=== PATIENT | female | born 2005 | race Caucasian/White ===

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

== ENCOUNTER 2023-01-06 12:05 | Outpatient (CLI) | payer OTHER ==
[2023-01-06 13:20] VITALS: BP 137/79; PULSE 108; RESP 18; TEMP 97.8
--- NOTE | 2023-02-02 16:35 | P.MSEPDOC ---
Presenting Problems - Arrival Data Date of Arrival on Unit: 01/06/23 Time of Arrival on Unit: 12:05 Mode of Transport: Ambulatory - Complaint OB-Reason for Admission/Chief Complaint: Rule Out SROM Comment: Pt presents with possible ROM this morning at 0930. Pt woke up and while ambulating to bathroom felt a gush of fluid. Medical History - Information : 1 Para: 0 Term: 0 : 0 Abortions: Spontaneous or Elective: 0 Number of Living Children: 0 - Gestational Age Gestational Age by JUSTYNA (wks/days): 39 Weeks and 6 Days Review of Systems - Review of Systems Constitutional: No problems Breast: No problems ENT: No problems Cardiovascular: No problems Respiratory: No problems Gastrointestinal: No problems Genitourinary: No problems Musculoskeletal: No problems Neurological: No problems Skin: No problems Vital Signs - Temperature Temperature: 97.8 F Temperature Source: Temporal Artery Scan - Pulse Pulse Oximetery Pulse Rate: 108 Pulse Assessment Method: Pulse Oximetry - Respirations Respiratory Rate: 18 Oxygen Delivery Method: Room Air O2 Sat by Pulse Oximetry: 98 - Blood Pressure Right Arm Blood Pressure: 137/79 Blood Pressure Mean: 98 Blood Pressure Source: Automatic Cuff Medical Screen Scoring - Cervical Exam Dilation (cm): 1 Effacement (%): 50 Membranes: Intact - Assessment - Baby A Baseline FHR: 130 NST: Reactive Physician Notification - Physician Notified Physician Notified Date: 01/06/23 Physician Notified Time: 12:50 Physician: Meka Akhtar New Order Received: Yes - Notification Comment Comment: pt 39 and 6 presents with possible ROM. Pt not cx. per toco, amnisure negative, 1cm/thick and posterior. Orders recieved to d/c home once. NST reactive. Pt to keep appointment in the office tomorrow at 2p with Dr. Akhtar Maternal Triage Index - Maternal Triage Index Presenting for scheduled procedure w/no complaint: No - Stat/Priority 1 Stat Priority 1: No - Urgent/Priority 2 Urgent Priority 2: No - Prompt/Priority 3 Prompt Priority 3: Yes Criteria Met for Priority 3: Pt presents with possible ROM this morning at 0930. Pt woke up and while ambulating to bathroom felt a gush of fluid. Disposition - Disposition OB Disposition: Triage, Discharge to home Discharge Date: 01/06/23 Discharge Time: 12:54 I agree with the RN Medical Screening Exam: Yes Case reviewed; plan agreed upon as documented in EMR&OBIX.: Yes Diagnosis: RELATED CONDITIONS, UNSPECIFIED, THIRD TRIMESTER
== END 2023-01-06 12:54 | disposition home or self-care (01) ==
LOC: FBPOP 12:05
PROVIDERS: ATTEND Obstetrics & Gynecology Obstetrics
DX: O47.1 False labor at or after 37 completed weeks of gestation (principal); Z3A.39 39 weeks gestation of pregnancy
CPT/HCPCS: 59025; 84112; G0463; 99213

== ENCOUNTER 2023-10-25 23:14 | Emergency (ER) | payer OTHER ==
[2023-10-25 23:32] VITALS: BP 107/74; PULSE 109; RESP 22; TEMP 99.5
[2023-10-25] MEDS ORDERED: KETOROLAC 15 MG/ML 1 ML VIAL IM STA (23:47)
[2023-10-25] MEDS ORDERED: ACETAMINOPHEN TAB 500 MG TAB PO STA (23:47)
--- NOTE | 2023-10-25 23:48 | ED ---
General Adult HPI - General Source: patient, RN notes reviewed Mode of arrival: EMS Limitations: no limitations <Sharif Travis - Last Filed: 10/25/23 23:49> <Luis Campbell - Last Filed: 10/26/23 00:21> - General Chief complaint: Upper Respiratory Infection Stated complaint: Difficulty Breathing, COVID+ Time Seen by Provider: 10/25/23 23:40 - History of Present Illness Initial comments: Quick note 17-year-old female presenting to the ED with a chief complaint of chest pain. Patient reports over the past 2 days has had myalgias, cough, congestion. Seen at [facility] urgent [facility] earlier today and was diagnosed with COVID. Reports since then every time she coughs she has pain across her entire chest. (Sharif Travis) Patient was diagnosed with coronavirus. She has symptoms consistent with a viral upper respiratory infection. She is hemodynamically stable with normal oxygenation. She has no history of asthma. No history of cardiac disease. (Luis Campbell) - Related Data Home Medications Medication Instructions Recorded Confirmed No Known Home Medications 01/11/23 01/11/23 Allergies Allergy/AdvReac Type Severity Reaction Status Date / Time No Known Allergies Allergy Verified 10/25/23 23:32 Review of Systems ROS Other: All systems not noted in ROS Statement are negative. <Sharif Travis - Last Filed: 10/25/23 23:49> ROS Other: All systems not noted in ROS Statement are negative. <Luis Campbell - Last Filed: 10/26/23 00:21> ROS Statement: Those systems with pertinent positive or pertinent negative responses have been documented in the HPI. Past Medical History Past Medical History: No Reported History History of Any Multi-Drug Resistant Organisms: None Reported Past Surgical History: No Surgical Hx Reported Past Psychological History: ADD/ADHD, Anxiety, Depression Smoking Status: Former smoker Past Alcohol Use History: None Reported Past Drug Use History: None Reported <Sharif Travis - Last Filed: 10/25/23 23:49> General Exam Limitations: no limitations <Sharif Travis - Last Filed: 10/25/23 23:49> General appearance: alert, in no apparent distress Head exam: Present: atraumatic, normocephalic Eye exam: Present: normal appearance, PERRL Respiratory exam: Absent: respiratory distress Cardiovascular Exam: Present: regular rate, normal rhythm Extremities exam: Present: normal inspection. Absent: pedal edema Neurological exam: Present: alert, oriented X3, CN II-XII intact, normal gait. Absent: motor sensory deficit Skin exam: Present: warm, dry, intact <Luis Campbell - Last Filed: 10/26/23 00:21> - General Exam Comments Initial Comments: Visual Physical Exam Vital signs reviewed General: Well-appearing, nontoxic, no acute distress. Head: Normocephalic, atraumatic Eyes: PERRLA, EOMI ENT: Airway patent Chest: Nonlabored breathing Skin: No visual rash, normal skin tone Neuro: Alert and oriented 3 Musculoskeletal: No gross abnormalities (Sharif Travis) Course Vital Signs 10/25/23 23:26 Temperature 99.5 F Pulse Rate 109 H Respiratory 22 Rate Blood Pressure 107/74 O2 Sat by Pulse 97 Oximetry Medical Decision Making <Sharif Travis - Last Filed: 10/25/23 23:49> <Luis Campbell - Last Filed: 10/26/23 00:21> - Medical Decision Making Quicknote portion performed. Signed Sharif Travis PA-C (Sharif Travis) Was pt. sent in by a medical professional or institution (CAYETANO Rodriguez, BROADCAST DIRECTOR OPERATIONS, urgent care, hospital, or longterm...) When possible be specific @ -No Did you speak to anyone other than the patient for history (EMS, parent, family, police, friend...)? What history was obtained from this source @ -No Did you review nursing and triage notes (agree or disagree)? Why? @ -I reviewed and agree with nursing and triage notes Were old charts reviewed (outside hosp., previous admission, EMS record, old EKG, old radiological studies, urgent care reports/EKG's, longterm records)? Report findings @ -No old charts were reviewed Differential Diagnosis viral upper airway infection, pneumonia, hypoxia secondary to viral infection. EKG interpreted by me (3pts min.). @ -As above X-rays interpreted by me (1pt min.). @ -None done CT interpreted by me (1pt min.). @ -None done U/S interpreted by me (1pt. min.). @ -None done What testing was considered but not performed or refused? (CT, X-rays, U/S, labs)? Why? @ -None What meds were considered but not given or refused? Why? @ -None Did you discuss the management of the patient with other professionals (professionals i.e. Dr., PA, BROADCAST DIRECTOR OPERATIONS, lab, RT, psych nurse, child welfare social worker, web software engineer, teacher, life science technical officer, residential case manager)? Give summary @ -No Was smoking cessation discussed for >3mins.? @ -No Was critical care preformed (if so, how long)? @ -No Were there social determinants of health that impacted care today? How? (Homelessness, low income, unemployed, alcoholism, drug addiction, transportation, low edu. Level, literacy, decrease access to med. care, skilled nursing, rehab)? @ -No Was there de-escalation of care discussed even if they declined (Discuss DNR or withdrawal of care, Hospice)? DNR status @ -No What co-morbidities impacted this encounter? (DM, HTN, Smoking, COPD, CAD, Cancer, CVA, ARF, Chemo, Hep., AIDS, mental health diagnosis, sleep apnea, morbid obesity)? @ -None Was patient admitted / discharged? Hospital course, mention meds given and route, prescriptions, significant lab abnormalities, going to OR and other pertinent info. @ -[17-year-old otherwise healthy female who presents for evaluation of difficulty breathing with diagnosis of coronavirus today. Patient is well-appea ring with stable vitals. She has an oxygen 897 to 100% on room air with no tachypnea. I did offer further testing and evaluation but it was noted that there was a significantly long wait in the waiting room and the patient states that she should return if her symptoms would worsen and can be discharged at this time in stable condition. Undiagnosed new problem with uncertain prognosis? @ -No Drug Therapy requiring intensive monitoring for toxicity (Heparin, Nitro, Insulin, Cardizem)? @ -No Were any procedures done? @ -No Diagnosis/symptom? @ -Coronavirus Acute, or Chronic, or Acute on Chronic? @ -Acute Uncomplicated (without systemic symptoms) or Complicated (systemic symptoms)? @ -Default Side effects of treatment? @ -No Exacerbation, Progression, or Severe Exacerbation? @ -No Poses a threat to life or bodily function? How? (Chest pain, [place], [place], pneumonia, PE, COPD, DKA, ARF, appy, cholecystitis, CVA, Diverticulitis, Homicidal, Suicidal, threat to staff... and all critical care pts) @ -[Low risk at this time (Luis Campbell) Disposition <Sharif Travis - Last Filed: 10/25/23 23:49> Is patient prescribed a controlled substance at d/c from ED?: No Time of Disposition: 00:21 <Luis Campbell - Last Filed: 10/26/23 00:21> Clinical Impression: COVID-19 Disposition: HOME SELF-CARE Condition: Good Instructions (If sedation given, give patient instructions): Upper Respiratory Infection (ED) Referrals: None,Stated [Primary Care Provider] - 1-2 days
== END 2023-10-26 00:30 | disposition home or self-care (01) ==
LOC: EC 23:14
DX: U07.1 COVID-19 (principal); Z87.891 Personal history of nicotine dependence
CPT/HCPCS: 93005; 99285